=== PATIENT | female | born 1985 | race Hispanic/Latino ===

== ENCOUNTER 2018-01-04 20:33 | Inpatient (IN) | payer MEDICAID ==
[2018-01-04] MEDS ORDERED: NARCAN 0.4 MG/1 ML IV PRN (22:02)
[2018-01-04] MEDS ORDERED: CERVIDIL VG ONE (22:02)
[2018-01-04] MEDS ORDERED: ZOFRAN IV PRN (22:02)
[2018-01-04] MEDS ORDERED: MINERAL OIL PO PRN (22:02)
[2018-01-04] MEDS ORDERED: XYLOCAINE 2% INFILTRATI ONE (22:02)
[2018-01-04] MEDS ORDERED: BRETHINE SUB-Q PRN (22:02)
[2018-01-04] MEDS ORDERED: ePHEDrine SULFATE IV PRN (22:02)
[2018-01-04] MEDS ORDERED: SUBLIMAZE IV PRN (22:02)
[2018-01-04] MEDS ORDERED: PHENERGAN PR PRN (22:02)
[2018-01-04] MEDS ORDERED: BRETHINE IVP PRN (22:02)
[2018-01-04] MEDS ORDERED: STADOL IV PRN (22:02)
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
[2018-01-04] MEDS ORDERED: AMBIEN PO PRN (22:06)
[2018-01-04 22:42] LABS: Hematocrit 36.5 % (30.3-42.9); Hemoglobin 12.5 gm/dl (10.1-14.3); Mean Corpuscular HGB Conc 34 % (30-34); Mean Corpuscular Hemoglobin 31 pg (28-32); Mean Corpuscular Volume 91 fl (79-97); Platelet Count 235 K/mm3 (140-440); Red Blood Count 4.02 M/mm3 (3.65-5.03); Red Cell Distribution Width 13.8 % (13.2-15.2)
[2018-01-04] MEDS ORDERED: PITOCin/NS 20 UNIT/1000ML DRIP 20 UNITS/1,000 ML BAG IV SCH (23:00)
[2018-01-04] MEDS ORDERED: PITOCin/NS 30 UNIT/500ML 30 UNITS/500 ML BAG IV SCH (23:00)
[2018-01-04] MEDS ORDERED: NORMOSOL-R PH 7.4 1,000 ML IV SCH (23:00)
--- NOTE | 2018-01-05 05:59 | Progress Note ---
Assessment and Plan Pt c/o cramping and just being uncomfortable in the bed. Tylenol po offered. SVE 1,thick, OOP Cervidil in place. Pt OOB to void. Will allow AM care, diet, and start pitocin per protocol once Cervidil is removed. Pt instructed to not consume any more outside food, diet will be served from hospital. Hydration encouraged. POC reviewed with pt, all questions addressed. FBS 70. Subjective - Subjective Date of service: 01/05/18 (pt resting c/o being uncomfortable in bed) Principal diagnosis: IUP @ 39w5d GDM; obesity IOL Patient reports: movement normal Objective - Vital Signs Vital Signs: Vital Signs - 12hr 01/04/18 01/04/18 01/04/18 20:54 20:58 21:12 Temperature 97.1 F L Pulse Rate 100 H 100 H 87 Respiratory 18 Rate Blood Pressure 134/76 Blood Pressure 134/76 [Left] O2 Sat by Pulse 94 Oximetry 01/04/18 01/04/18 01/04/18 21:13 21:17 21:18 Temperature Pulse Rate 86 84 91 H Respiratory Rate Blood Pressure Blood Pressure [Left] O2 Sat by Pulse 94 94 94 Oximetry 01/05/18 01/05/18 04:35 04:44 Temperature 97.3 F L Pulse Rate 85 Respiratory 22 Rate Blood Pressure 136/67 Blood Pressure [Left] O2 Sat by Pulse Oximetry - Exam Breasts: deferred Cardiovascular: Regular rate Lungs: Normal air movement Abdomen: Present: normal appearance, soft. Absent: distention, tenderness Uterus: Present: normal FHR: auscultation normal, category 1 (pt OOB to toilet RN reports Cat 1 strip; instructed pt to call out when she returns from toilet so the monitor can be reapplied) Uterine Contraction Monitor Mode: External Cervical Dilatation: 1 (Cervidil in place) Cervical Effacement Percentage: 50 station: -3 Uterine Contraction Pattern: Irregular Uterine Tone Measurement Phase: Resting Uterine Contraction Intensity: Mild - Labs Labs: Abnormal Labs 01/04/18 21:30 WBC 14.4 H Laboratory Results - last 24 hr 01/04/18 01/04/18 21:30 21:30 WBC 14.4 H RBC 4.02 Hgb 12.5 Hct 36.5 MCV 91 MCH 31 MCHC 34 RDW 13.8 Plt Count 235 Blood Type A POSITIVE Antibody Screen Negative
[2018-01-05] MEDS ORDERED: TYLENOL PO ONE (06:05)
[2018-01-05] MEDS ORDERED: PITOCin/NS 30 UNIT/500ML 30 UNITS/500 ML BAG IV SCH (11:00)
[2018-01-05] MEDS ORDERED: REGLAN IV SCH (16:03)
[2018-01-05] MEDS ORDERED: PEPCID IV SCH (16:03)
[2018-01-05] MEDS ORDERED: BICITRA PO SCH (16:03)
[2018-01-05] MEDS: NORMOSOL-R PH 7.4 1,000 ML IV SCH ×2 (16:10→17:55)
--- NOTE | 2018-01-05 16:14 | Progress Note ---
Assessment and Plan US done baby is breech. Pt was allowed to eat despite orders for breakfast only. Will wait the required 6 hours then move forward with c/s @ that time. aware. anesthesia called he has OKed this time. L&D charge nurse made aware of plans. Spoke with pt over the phone she agrees to POC. C/S preop orders in EMR Subjective - Subjective Date of service: 01/05/18 (rec a call from RN that she had concerns @ presentation) Principal diagnosis: IUP @ 39w5d GDM; obesity IOL Patient reports: movement normal Objective - Vital Signs Vital Signs: Vital Signs - 12hr 01/05/18 01/05/18 01/05/18 04:35 04:44 08:46 Temperature 97.3 F L 97.5 F L Pulse Rate 85 83 Respiratory 22 18 Rate Blood Pressure 136/67 Blood Pressure 157/72 [Left] 01/05/18 01/05/18 01/05/18 08:50 08:51 10:50 Temperature Pulse Rate 83 80 69 Respiratory Rate Blood Pressure 156/71 157/72 143/75 Blood Pressure [Left] - Exam Cardiovascular: Regular rate Lungs: Normal air movement Abdomen: Present: normal appearance, soft. Absent: distention, tenderness Uterus: Present: normal FHR: auscultation normal, category 1 Uterine Contraction Pattern: Irregular Uterine Tone Measurement Phase: Resting Uterine Contraction Intensity: Mild Extremities: edema Deep Tendon Reflex Grade: Normal +2 - Labs Labs: Abnormal Labs 01/04/18 01/04/18 21:30 22:18 WBC 14.4 H POC Glucose 126 H Laboratory Results - last 24 hr 01/04/18 01/04/18 01/04/18 21:30 21:30 21:30 WBC 14.4 H RBC 4.02 Hgb 12.5 Hct 36.5 MCV 91 MCH 31 MCHC 34 RDW 13.8 Plt Count 235 POC Glucose RPR Nonreactive Blood Type A POSITIVE Antibody Screen Negative 01/04/18 01/05/18 22:18 06:01 WBC RBC Hgb Hct MCV MCH MCHC RDW Plt Count POC Glucose 126 H 70 RPR Blood Type Antibody Screen
--- NOTE | 2018-01-05 16:30 | Anesthesia Consultation ---
Anesthesia Consult and Med Hx Date of service: 01/05/18 - Airway Anesthetic Teeth Evaluation: Good ROM Head & Neck: Adequate Mental/Hyoid Distance: Adequate Mallampati Class: Class I Intubation Access Assessment: Good - Pulmonary Exam CTA: Yes - Cardiac Exam Cardiac Exam: RRR - Pre-Operative Health Status ASA Pre-Surgery Classification: ASA2 Proposed Anesthetic Plan: Epidural, Spinal - Pulmonary Hx Asthma: No - Cardiovascular System Hx Hypertension: No - Central Nervous System Hx Seizures: No Hx Psychiatric Problems: Yes (ANXIETY PREVIOUSLY ON LITHIUM) - Endocrine Hx Renal Disease: No Hx Non-Insulin Dependent Diabetes: Yes (gestational. Diet controlled) Hx Hypothyroidism: No Hx Hyperthyroidism: No - Hematic Hx Anemia: No Hx Sickle Cell Disease: No - Other Systems Hx Alcohol Use: No Hx Obesity: Yes
--- NOTE | 2018-01-05 16:31 | Anesthesia Day of Surgery ---
Anesthesia Day of Surgery - Day of Surgery Patient Examined: Yes Patient H&P Reviewed: Yes Patient is NPO: Yes
[2018-01-05] MEDS ORDERED: TORADOL IV PRN (17:00)
[2018-01-05] MEDS ORDERED: ANCEF/STERILE WATER 2 GM/20 ML 2 GM/20 ML SYRINGE IV NR (17:00)
[2018-01-05] MEDS ORDERED: PITOCin/NS 20 UNIT/1000ML DRIP 20 UNITS/1,000 ML BAG IV SCH ×2 (17:00→22:16)
[2018-01-05] MEDS ORDERED: DILAUDID IV PRN (17:00)
--- NOTE | 2018-01-05 17:26 | Ultrasound Report ---
FINAL REPORT EXAM: US OB FOLLOW UP HISTORY: EFW/POSITION TECHNIQUE: Ultrasound evaluation of the gravid uterus PRIORS: None. FINDINGS: There is a single viable intrauterine with documented cardiac activity. Multiple ultrasound measurements are made to determine a composite gestational age. Nonspecific slightly high cephalic index at 84.1, upper limits 83.0. Other ratios are within normal limits. No sonographic abnormality in the limited visualized portion of the anatomy. Heart rate: 121 beats per minute position: Breech with head in right upper quadrant Estimated weight: 3412 g Growth percentile by ultrasound: 37 Ultrasound estimated gestational age: 39 weeks 0 days Ultrasound estimated delivery date: 01/12/2018 LMP estimated gestational age: 39 weeks 5 days LMP estimated delivery date: 01/07/2018 IMPRESSION: Single viable intrauterine with the above parameters Breech presentation Nonspecific slightly elevated cephalic index
[2018-01-05] MEDS ORDERED: ANCEF/STERILE WATER 2 GM/20 ML IV ONE (18:45)
[2018-01-05] MEDS ORDERED: WATER FOR IRRIG STERILE IR ONE (19:04)
[2018-01-05] MEDS ORDERED: NACL 0.9% IR ONE (19:04)
[2018-01-05] MEDS ORDERED: NEO SYNEPHRINE/NS Syringe(OR USE) IV ONE ×2 (19:11→19:33)
[2018-01-05] MEDS ORDERED: ZOFRAN ONE (19:34)
[2018-01-05] MEDS ORDERED: XYLOCAINE MPF 2% ONE (19:44)
[2018-01-05] MEDS ORDERED: ROBINUL ONE (19:59)
--- NOTE | 2018-01-05 20:06 | Operative Report ---
Operative Report Operative Report: Date of procedure: 01/05/2018 Pre-operative diagnosis: Breech Presentation Post-operative diagnosis: Same Procedure name(s): Primary low transverse section Surgeon: Jonnathan Velázquez MD Remote Sensing Engineer: Ana Hillman certified nurse inside tester Anesthesia: Spinal EBL: 800 Complications: None Findings: Normal uterus tubes and ovaries, male infant breech presentation, weight 7 lbs. 1 oz., Apgars 8 at 1 minute 9 at 5 minutes Specimen(s): None Procedure: The patient was brought to the operating room. A spinal was placed without any complications. She was then placed in left lateral tilt. Prepped and draped in the usual sterile manner. After testing for adequate anesthesia level, a Pfannenstiel incision was made. This incision was taken down to the fascia. The fascia was then nicked in the midline. This incision was extended out laterally with Moore scissors. The fascia was then sharply and bluntly from the underlying rectus muscles. The rectus muscles were bluntly and sharply . The peritoneum was then entered with the waterproofing machine operator's fingers. This incision was spread vertically with care not to damage the bladder below. The bladder flap was then formed sharply and bluntly with Metzenbaum scissors. A transverse incision was made in lower uterine segment. This incision was extended laterally with the operators fingers. The amniotic sac was then entered bluntly with the waterproofing machine operator's fingers. The infant was delivered by delivered in the breech first flexing and extending the lower extremities followed by raising the breech then sweeping flexing and extending the upper extremities and after coming head was then delivered safely. The was bulb suctioned on the mother's abdomen. Cord was double clamped and cut. The infant was then passed to the nursery personnel who were in attendance. The above scores were given by the nursery personnel. The placenta was then bluntly removed. The uterus was then externalized and wiped clean the remaining products. The uterine incision was closed in layers. The first incision was closed in a locking manner using 0 Vicryl. This was followed by imbricating stitch also with 0 Vicryl. This closure was hemostatic. The bladder flap was copiously irrigated and found to be hemostatic. The pelvis was copiously irrigated and found to be hemostatic. The uterus was then placed back to the patient's abdomen. Surgicel was placed across the uterine closure The retractors were removed. The rectus muscles were inspected and found to be hemostatic. The fascia was then closed in a running manner using 0 Vicryl. This incision was hemostatic irrigation Bovie. The skin was reapproximated with 4-0 Vicryl subcuticularly. The patient tolerated procedure well. Her urine was clear. The infant was admitted to the well baby nursery. The patient was accompanied to recovery room in good condition. Instrument count correct 3.
[2018-01-05] MEDS ORDERED: HumuLIN R SUB-Q SCH (22:16)
[2018-01-05] MEDS ORDERED: LANSINOH TP PRN (22:16)
[2018-01-05] MEDS ORDERED: TUCKS PAD TP PRN (22:16)
[2018-01-05] MEDS ORDERED: ANCEF/NS 1 GM/50 ML 1 GM/50 ML BAG IV SCH (22:16)
[2018-01-05] MEDS ORDERED: SODIUM CHLORIDE FLUSH SYRINGE 10 ML IV PRN (22:16)
[2018-01-05] MEDS ORDERED: MYLICON PO PRN (22:16)
[2018-01-05] MEDS ORDERED: D50W (25GM) Syringe IV PRN (22:16)
[2018-01-05] MEDS ORDERED: MILK OF MAGNESIA PO PRN (22:16)
[2018-01-06] MEDS: NACL 0.45% 1000 ML 1,000 ML IV SCH ×2 (01:31→11:09)
[2018-01-06] MEDS: ceFAZolin 1 GM in NACL 0.9% 20 ML IV SCH ×2 (01:33→09:00)
[2018-01-06] MEDS: TORADOL IV SCH ×3 (01:37→14:05)
[2018-01-06 05:45] LABS: Hematocrit 35.6 % (30.3-42.9); Hemoglobin 12.2 gm/dl (10.1-14.3); Mean Corpuscular HGB Conc 34 % (30-34); Mean Corpuscular Hemoglobin 31 pg (28-32); Mean Corpuscular Volume 91 fl (79-97); Platelet Count 185 K/mm3 (140-440); Red Blood Count 3.91 M/mm3 (3.65-5.03)
[2018-01-06 05:59] LABS: Bilirubin,Urine NEG (Negative); Blood,Urine SM (Negative); Color,Urine Yellow (Yellow); Mucus,Urine FEW /HPF; Protein,Urine <15 mg/dL mg/dL (Negative); Urobilinogen,Urine < 2.0 mg/dL (<2.0)
[2018-01-06 06:10] LABS: Alanine Aminotransferase 12 units/L (7-56); Uric Acid 4.8 mg/dL (3.5-7.6)
--- NOTE | 2018-01-06 08:06 | Progress Note ---
Assessment and Plan patient doing well, pain well controlled. HAs not yet ambulated but due to get up this hour. Lochia scant, incision dressing dry and intact. output adequate. Denies BHATTI, visual changes or epigastric pain, pre-e labs normal. b/p 160-170's/ 80's. Consulted with Dr. Manuel - will start Labetalol 200 mg BID and continue to monitor b/p's. Continue postop pathway. - Patient Problems (1) delivery delivered Current Visit: Yes Status: Acute (2) HTN (hypertension) Current Visit: Yes Status: Acute Qualifiers: Hypertension type: unspecified Qualified Code(s): I10 - Essential (primary ) hypertension Subjective - Subjective Date of service: 01/06/18 Principal diagnosis: postop day 1 (<12hrs) s/p primary c/s Patient reports: pain well controlled, other (cerna draining to bsb), no nauseated : doing well, bottle feeding (breast and bottle feeding - needs to assist) Objective - Vital Signs Latest vital signs: Vital Signs Temp Pulse Resp BP BP Pulse Ox 01/06/18 04:20 67 179/85 01/06/18 03:00 65 167/81 01/06/18 01:39 97.5 F L 175/84 01/05/18 21:57 97.5 F L 66 20 167/81 99 01/05/18 21:00 52 L 21 149/75 100 01/05/18 20:51 61 22 147/76 98 01/05/18 20:40 60 18 130/67 97 01/05/18 20:30 65 23 107/52 95 01/05/18 20:20 68 14 98/42 96 01/05/18 20:10 65 17 100/42 95 01/05/18 20:09 94 01/05/18 18:02 97.7 F 76 16 144/75 01/05/18 17:51 76 144/75 01/05/18 13:00 69 143/75 01/05/18 12:40 66 145/79 01/05/18 10:50 69 143/75 01/05/18 08:51 80 157/72 01/05/18 08:50 83 156/71 01/05/18 08:46 97.5 F L 83 18 157/72 Intake and Output 01/05/18 01/06/18 01/06/18 23:59 07:59 15:59 Intake Total 2800 240 Output Total 800 850 Balance 2000 -610 Intake: IV 2800 Normosol-R pH 7.4 1,000 1000 ml @ 2250 mls/hr IV PREOP [facility] Rx#:[id number] Intake, Free Water 240 Output: Urine 800 850 Indwelling Catheter 850 Uretheral (Cerna) 300 Other: Total, Output Amount 150 Estimated Blood Loss 600 - Exam Breasts: Present: normal Cardiovascular: Present: Regular rate Lungs: Present: Clear to auscultation, Normal air movement Abdomen: Present: normal appearance, soft Vulva: both: normal Uterus: Present: normal, firm, fundal height at umbilicus Extremities: Present: normal Deep Tendon Reflex Grade: Normal +2 Incision: Present: normal, dry, dressed - Labs Labs: Abnormal lab results 01/06/18 01/06/18 Range/Units 05:34 05:34 WBC 14.2 H (4.5-11.0) K/mm3 Creatinine 0.4 L (0.7-1.2) mg/dL Lactate Dehydrogenase 212 H (91-180) units/L
[2018-01-06] MEDS ORDERED: FEOSOL PO SCH (10:00)
[2018-01-06] MEDS ORDERED: PRENATAL VITAMIN PO SCH (10:00)
[2018-01-06] MEDS: NORMODYNE PO SCH ×2 (10:00→22:12)
[2018-01-06] MEDS: NORCO 5/325 PO PRN ×2 (13:15→20:16)
--- NOTE | 2018-01-06 19:07 | XRay Report ---
FINAL REPORT PROCEDURE: XR CHEST ROUTINE 2V TECHNIQUE: PA and lateral chest radiographs were obtained. CPT 87049 HISTORY: Shortness of breath. COMPARISON: No prior studies are available for comparison. FINDINGS: Heart: Normal. Mediastinum/Vessels: Normal. Lungs/Pleural space: Normal. Bony thorax: No acute osseous abnormality. Other: Elevation of the right diaphragm. Subtle right subdiaphragmatic lucency. IMPRESSION: No radiographic evidence of acute cardiopulmonary disease. Subtle right subdiaphragmatic lucency, cannot exclude small amount of free intraperitoneal air.
[2018-01-06] MEDS: MOTRIN PO PRN (20:17)
--- NOTE | 2018-01-06 22:32 | Event Note ---
Date: 01/06/18 X-ray results reviewed. Just air under diaphram which could explain the symptoms she c/o earlier. Will con't to monitor at this time. BPs still slightly elevated but LFTs were normal.
[2018-01-07] MEDS: NORCO 5/325 PO PRN (02:18)
[2018-01-07] MEDS: MOTRIN PO PRN (02:19)
[2018-01-07] MEDS ORDERED: BOOSTRIX IM ONE (06:00)
--- NOTE | 2018-01-07 08:58 | Discharge Summary ---
Providers - Providers Date of Admission: 01/04/18 20:33 Date of discharge: 01/07/18 (requests d/c home today) Attending physician: TARAN RENTERIA 01/05/18 22:16 Consult to Tool Grinder Operator [CONS] Routine Reason For Exam: Primary care physician: TARAN RENTERIA Hospitalization Reason for admission: induction of labor,GDM - diet controlled Condition: Good Procedures: primary c/s for breech Hospital course: induction of labor, primary c/s for breech, elevated b/p with normal labs, responded well to 200 labetalol PO BID. Disposition: DC- TO HOME OR SELFCARE - Discharge Diagnoses (1) delivery delivered Status: Acute (2) HTN (hypertension) Status: Acute Qualifiers: Hypertension type: unspecified Qualified Code(s): I10 - Essential (primary ) hypertension Core Measure Documentation - Palliative Care Palliative Care/ Comfort Measures: Not Applicable - Core Measures Any of the following diagnoses?: none Exam - Constitutional Vitals: Temp Pulse Resp BP Pulse Ox 98.1 F 83 18 129/52 96 01/06/18 23:55 01/06/18 23:55 01/07/18 02:19 01/06/18 23:55 01/06/18 23:55 General appearance: Present: no acute distress, well-nourished - EENT Eyes: Present: PERRL ENT: hearing intact, clear oral mucosa - Neck Neck: Present: supple, normal ROM - Respiratory Respiratory effort: normal Respiratory: bilateral: CTA - Cardiovascular Heart Sounds: Present: S1 & S2. Absent: rub, click - Extremities Extremities: pulses symmetrical, No edema Peripheral Pulses: within normal limits - Abdominal General gastrointestinal: Present: soft, non-tender, non-distended, normal bowel sounds Female genitourinary: Present: normal - Integumentary Integumentary: Present: clear, warm, dry - Musculoskeletal Musculoskeletal: gait normal, strength equal bilaterally - Psychiatric Psychiatric: appropriate mood/affect, intact judgment & insight - Neurologic Neurologic: CNII-XII intact, moves all extremities - Additional findings Additional findings: incision D&I, lochia scant, H&H stable, fundus firm, bottle feeding. f/u appointment scheduled in 1 week. Plan Activity: advance as tolerated Diet: regular Wound: open to air, keep clean and dry Follow up with: TARAN RENTERIA MD [Primary Care Provider] - 01/12/18 3:00 pm (Congratulations ! Please call [phone] on Tuesday to schedule your son's circumcision in 1 week. Bring EMLA cream to your son's appointment and await further instructions. You have an appointment with Mayela in [place] office January 12 @ 3pm. Call for any questions or concerns.) Prescriptions: Ferrous Sulfate [Feosol 325 MG tab] 325 mg PO BID #60 tablet Ibuprofen [Motrin 800 MG tab] 800 mg PO Q6H PRN #30 tablet PRN Reason: Pain Lidocain2.5%/Prilocai2.5% [Emla] 5 gm TP ONCE PRN #1 tube PRN Reason: Pain oxyCODONE /ACETAMINOPHEN [Percocet 5/325 mg] 1 - 2 tab PO Q4H PRN #30 tablet PRN Reason: Pain, Moderate
[2018-01-07] MEDS: NORMODYNE PO SCH (11:15)
[2018-01-07 14:13] VITALS: BP 150/54
== END 2018-01-07 14:50 | disposition home or self-care (01) | DRG 765 ==
LOC: LD 20:33 → APU 01-05 20:10 → OB 01-05 21:35
PROVIDERS: ADMIT Obstetrics & Gynecology; ATTEND Obstetrics & Gynecology
PROC: 10D00Z1 Extraction of Products of Conception, Low, Open Approach (ICD-10-PCS; principal; 2018-01-05)
PROC: 3E0P7VZ Introduction of Hormone into Female Reproductive, Via Natural or Artificial Opening (ICD-10-PCS; 2018-01-05)
DX: O32.1XX0 Maternal care for breech presentation, not applicable or unspecified (principal); O16.4 Unspecified maternal hypertension, complicating childbirth; Z3A.39 39 weeks gestation of pregnancy; Z37.0 Single live birth; O24.420 Gestational diabetes mellitus in childbirth, diet controlled; O99.334 Smoking (tobacco) complicating childbirth; F17.210 Nicotine dependence, cigarettes, uncomplicated; Z68.35 Body mass index [BMI] 35.0-35.9, adult; O99.214 Obesity complicating childbirth; O28.5 Abnormal chromosomal and genetic finding on antenatal screening of mother
CPT/HCPCS: 36415; 71046; 76816; 81001; 82565; 82962; 83615; 84450; 84460; 84550; 85027; 86592; 86850; 86900; 86901; 99211; G0463; J0690; J1885; J2370; J2405; J2590; J2765